=== PATIENT | female | born 1990 | race Caucasian/White ===

== ENCOUNTER 2019-07-08 19:14 | Emergency (ER) | payer OTHER ==
[~2019-07-08] VITALS: Ht 167.6 cm; Wt 112.1 kg
--- NOTE | 2019-07-08 19:43 | ED.ADGEN ---
Past History Past Medical History: No Pertinent History Past Surgical History: Alcohol Use: Occasionally Drug Use: None Adult General Chief Complaint Chief Complaint ".. We just got back from [facility]... It was about a [address]... and I noticed my Rt. calf was swollen and red... I am worried I might have a DVT...." HPI HPI Patient is a 28 year old female who presents with Rt. lower leg pain after [address] from [place], [place]. Patient does have area of swelling on right calf which is tender and erythemic. There is no striations. There is no obvious cording. Does have findings of varicose veins. There is a small lesion on lower right calf as if she had a recent injury. There are no findings of interdigital fungus infection. There is no adenopathy in right groin. Does have some nonspecific bruising of both legs. No hx of injury to feet while walking on the [facility] bare foot. Patient denies history of immunos uppression. Patient denies any specific ill contacts. Patient normally follows with at Urgent cares. Patient does smoke. Review of Systems Review of Systems Constitutional: Denies fever or chills [] Eyes: Denies change in visual acuity, redness, or eye pain [] HENT: Denies nasal congestion or sore throat [] Respiratory: Denies cough or shortness of breath [] Cardiovascular: No additional information not addressed in HPI [] GI: Denies abdominal pain, nausea, vomiting, bloody stools or diarrhea [] : Denies dysuria or hematuria [] Musculoskeletal: Denies back pain or joint pain []complains of right calf pain Integument: Denies rash or skin lesions [] Neurologic: Denies headache, focal weakness or sensory changes [] Endocrine: Denies polyuria or polydipsia [] All other systems were reviewed and found to be within normal limits, except as documented in this note. Family History Family History Noncontributory Current Medications Current Medications Current Medications Medications (Trade) Dose Ordered Sig/Vicki Start Time Stop Time Status Last Admin Dose Admin Hydrocodone Bitartrate/ Ibuprofen (Vicoprofen 7.5-200) 2 tab 1X ONCE 07/08/19 21:45 07/08/19 21:54 DC 07/08/19 21:49 2 TAB Trimethoprim/ Sulfamethoxazole (Bactrim Ds) 1 tab 1X ONCE 07/08/19 23:30 07/09/19 00:16 DC 07/08/19 23:35 1 TAB Allergies Allergies Allergies Coded Allergies Type Severity Reaction Last Updated Verified No Known Drug Allergies 11/04/15 No Physical Exam Physical Exam Constitutional: Moderate acute distress, non-toxic appearance. [] HENT: Normocephalic, atraumatic, bilateral external ears normal, oropharynx moist, no oral exudates, nose normal. [] Eyes: PERRLA, EOMI, conjunctiva normal, no discharge. [] Neck: Normal range of motion, no tenderness, supple, no stridor. [] Cardiovascular:Heart rate regular rhythm, no murmur [] Lungs & Thorax: Bilateral breath sounds clear to auscultation [] Abdomen: Bowel sounds normal, soft, no tenderness, no masses, no pulsatile masses. [] Old surgery scar Skin: Warm, dry, no erythema, no rash. [] Back: No tenderness, no CVA tenderness. [] Extremities: Right calf tenderness, no cyanosis, no clubbing, ROM intact, right calf edema. [] Right calf inflammation. Both legs have some venous stasis and v aricose veins. Distal capillary refill is equal in both feet and less than 2 seconds.. Pedal pulses are equal in both feet. Neurologic: Alert and oriented X 3, normal motor function, normal sensory function, no focal deficits noted. [] Psychologic: Affect anxious, judgement normal, mood normal. [] Current Patient Data Vital Signs Vital Signs Date Time Temp Pulse Resp B/P (MAP) Pulse Ox O2 Delivery O2 Flow Rate FiO2 07/09/19 04:24 97.9 86 20 131/90 (104) 96 Room Air Lab Results Laboratory Tests Test 07/08/19 20:21 07/08/19 20:36 07/08/19 20:49 Urine Collection Type Void Urine Color Straw Urine Clarity Clear Urine pH 7.0 Urine Specific Nelson 1.010 Urine Protein Neg (NEG-TRACE) Urine Glucose (UA) Neg mg/dL (NEG) Urine Ketones (Stick) Neg mg/dL (NEG) Urine Blood Neg (NEG) Urine Nitrite Neg (NEG) Urine Bilirubin Neg (NEG) Urine Urobilinogen Dipstick 0.2 mg/dL (0.2 mg/dL) Urine Leukocyte Esterase Neg (NEG) Urine RBC 0 /HPF (0-2) Urine WBC 0 /HPF (0-4) Urine Squamous Epithelial Cells Few /LPF Urine Bacteria 0 /HPF (0-FEW) Urine Opiates Screen Neg (NEG) Urine Methadone Screen Neg (NEG) Urine Barbiturates Neg (NEG) Urine Phencyclidine Screen Neg (NEG) Urine Amphetamine/Methamphetamine Pos (NEG) Urine Benzodiazepines Screen Neg (NEG) Urine Cocaine Screen Neg (NEG) Urine Cannabinoids Screen Neg (NEG) Urine Ethyl Alcohol Pos (NEG) POC Urine HCG, Qualitative hcg negative (Negative) White Blood Count 7.2 x10^3/uL (4.0-11.0) Red Blood Count 4.07 x10^6/uL (3.50-5.40) Hemoglobin 13.1 g/dL (12.0-15.5) Hematocrit 39.0 % (36.0-47.0) Mean Corpuscular Volume 96 fL (79-100) Mean Corpuscular Hemoglobin 32 pg (25-35) Mean Corpuscular Hemoglobin Concent 34 g/dL (31-37) Red Cell Distribution Width 12.7 % (11.5-14.5) Platelet Count 218 x10^3/uL (140-400) Neutrophils (%) (Auto) 58 % (31-73) Lymphocytes (%) (Auto) 32 % (24-48) Monocytes (%) (Auto) 7 % (0-9) Eosinophils (%) (Auto) 2 % (0-3) Basophils (%) (Auto) 1 % (0-3) Neutrophils # (Auto) 4.2 x10^3uL (1.8-7.7) Lymphocytes # (Auto) 2.3 x10^3/uL (1.0-4.8) Monocytes # (Auto) 0.5 x10^3/uL (0.0-1.1) Eosinophils # (Auto) 0.1 x10^3/uL (0.0-0.7) Basophils # (Auto) 0.1 x10^3/uL (0.0-0.2) Prothrombin Time 9.6 SEC (9.4-11.4) Prothrombin Time INR 0.9 (0.9-1.1) Activated Partial Thromboplast Time 25 SEC (23-33) D-Dimer (Cally) < 0.19 mg/L (0.00-0.50) Sodium Level 142 mmol/L (136-145) Potassium Level 4.0 mmol/L (3.5-5.1) Chloride Level 105 mmol/L (98-107) Carbon Dioxide Level 27 mmol/L (21-32) Anion Gap 10 (6-14) Blood Urea Nitrogen 6 mg/dL (7-20) L Creatinine 0.7 mg/dL (0.6-1.0) Estimated GFR (Cockcroft-Gault) 98.3 Glucose Level 97 mg/dL (70-99) Calcium Level 8.8 mg/dL (8.5-10.1) EKG EKG [] Radiology/Procedures Radiology/Procedures [][address] [id number] IMAGING REPORT Signed PATIENT: CALEB SERNA ACCOUNT: [id number] : 1990 LOCATION: ER AGE: 28 SEX: F EXAM STATUS: REG ER ORD. PHYSICIAN: SERGIO CROCKER MD REASON: swollen painful rtlower leg PROCEDURE: VENOUS LOWER EXTREMITY RIGHT Exam: Right lower extremity venous duplex study INDICATION: Leg swelling TECHNIQUE: Using a combination of real-time ultrasound imaging and color-flow and pulse Doppler imaging techniques along with graded compression and augmentation, duplex evaluation of the deep venous systems of rightlower extremity was performed. Multiple images were obtained. Findings: There is no sonographic evidence for deep venous thrombosis involving the visualized deep venous structures of the right lower extremity. IMPRESSION: No acute DVT in the right lower extremities. Electronically signed by: Genaro Painter MD (07/08/2019 10:36 PM) [facility] DICTATED AND SIGNED BY: GENARO PAINTER MD DATE: 07/08/192235 CC: SERGIO CROCKER MD; PCP,NO ~ Course & Med Decision Making Course & Med Decision Making Pertinent Labs and Imaging studies reviewed. (See chart for details) Patient a use moist compresses salt water or Epsom salts 4 times a day. Patient to take Bactrim DS twice a day to cover for possible early cellulitis. Take a daily aspirin. Patient return if any concerns. Patient follow-up with primary care. Patient encouraged not to smoke or use illicit drugs. Patient return if any concerns. Elevate right leg when possible. [] Final Impression Final Impression 1. Superficial thrombophlebitis 2. Cellulitis- possible 3. No DVT by ultrasound or d-dimer[] 4. Tobacco use, urine drug screen positive for amphetamine Dragon Disclaimer Dragon Disclaimer This electronic medical record was generated, in whole or in part, using a voice recognition dictation system. Dragon Disclaimer This chart was dictated in whole or in part using Voice Recognition software in a busy, high-work load, and often noisy Emergency Department environment. It may contain unintended and wholly unrecognized errors or omissions. Dragon Disclaimer This chart was dictated in whole or in part using Voice Recognition software in a busy, high-work load, and often noisy Emergency Department environment. It may contain unintended and wholly unrecognized errors or omissions. SERGIO CROCKER MD Jul 08, 2019 19:43
[2019-07-08 20:44] LABS: BARBITURATES NEG (NEG); BENZODIAZEPINES NEG (NEG); CANNABINOIDS NEG (NEG); COCAINE NEG (NEG); METHADONE NEG (NEG); OPIATES NEG (NEG); PHENCYCLIDINE NEG (NEG)
[2019-07-08 20:45] LABS: AMPHETAMINE/METHAMPHETAMINE POS (NEG)
[2019-07-08 20:50] LABS: BACTERIA,URINE 0 /HPF (0-FEW); BILIRUBIN,URINE NEG (NEG); CLARITY,URINE CLEAR; COLOR,URINE STRAW; GLUCOSE,URINE NEG (NEG); NITRITE,URINE NEG (NEG); RBC,URINE 0 /HPF (0-2); SQUAMOUS EPITHELIAL CELL,UR FEW /LPF; UROBILINOGEN,URINE 0.2 mg/dL (0.2 mg/dL); WBC,URINE 0 /HPF (0-4)
[2019-07-08 21:24] LABS: BASO # 0.1 x10^3/uL (0.0-0.2); BASO % 1 % (0-3); EOS # 0.1 x10^3/uL (0.0-0.7); EOS % 2 % (0-3); HEMOGLOBIN 13.1 g/dL (12.0-15.5); LYMPH # 2.3 x10^3/uL (1.0-4.8); LYMPH % 32 % (24-48); MEAN CORPUSCULAR HEMOGLOBIN 32 pg (25-35); MEAN CORPUSCULAR HGB CONC 34 g/dL (31-37); MEAN CORPUSCULAR VOLUME 96 fL (79-100); MONO # 0.5 x10^3/uL (0.0-1.1); MONO % 7 % (0-9); NEUT # 4.2 x10^3uL (1.8-7.7); NEUT % 58 % (31-73); PLATELET COUNT 218 x10^3/uL (140-400); RED BLOOD COUNT 4.07 x10^6/uL (3.50-5.40); RED CELL DISTRIBUTION WIDTH 12.7 % (11.5-14.5); WHITE BLOOD COUNT 7.2 x10^3/uL (4.0-11.0)
[2019-07-08 21:26] LABS: CALCIUM 8.8 mg/dL (8.5-10.1); CREATININE 0.7 mg/dL (0.6-1.0); GFR 98.3
[2019-07-08] MEDS ORDERED: HYDROcodon/IBUPROFEN 7.5/200MG 1 TAB TABLET PO ONE (21:45)
--- NOTE | 2019-07-08 22:40 | RAD ---
Exam: Right lower extremity venous duplex study INDICATION: Leg swelling TECHNIQUE: Using a combination of real-time ultrasound imaging and color-flow and pulse Doppler imaging techniques along with graded compression and augmentation, duplex evaluation of the deep venous systems of rightlower extremity was performed. Multiple images were obtained. Findings: There is no sonographic evidence for deep venous thrombosis involving the visualized deep venous structures of the right lower extremity. IMPRESSION: No acute DVT in the right lower extremities. Electronically signed by: Genaro Simeon MD (07/08/2019 10:36 PM) [facility]
[2019-07-08] MEDS ORDERED: HYDR-1179 PO (23:29)
[2019-07-08] MEDS ORDERED: SULF1TAB24 PO (23:29)
[2019-07-08] MEDS ORDERED: SMZ/TMP 800/160MG TABLET. PO ONE (23:30)
[2019-07-09 04:24] VITALS: BP 131/90
== END 2019-07-08 23:45 | disposition home or self-care (01) ==
LOC: ER 19:14
DX: I80.01 Phlebitis and thrombophlebitis of superficial vessels of right lower extremity (principal); Z72.0 Tobacco use; F15.90 Other stimulant use, unspecified, uncomplicated
CPT/HCPCS: 36415; 80048; 80307; 81001; 81025; 85025; 85379; 85610; 85730; 93971; 99285

== ENCOUNTER 2020-07-24 06:48 | Emergency (ER) | payer OTHER ==
[~2020-07-24] VITALS: Ht 167.6 cm; Wt 109.0 kg
[~2020-07-24 06:48] MED LIST: HYDR-1179 PO; SULF1TAB24 PO
[2020-07-24 06:58] VITALS: BP 132/97
[2020-07-24] MEDS ORDERED: PRED-220 PO (07:32)
[2020-07-24] MEDS ORDERED: HYDR-3165 PO (07:32)
--- NOTE | 2020-07-24 07:32 | PHYS DOC ---
Past History Past Medical History: No Pertinent History, Anxiety, Bipolar, Other Past Surgical History: , Other Alcohol Use: Occasionally Drug Use: None General Adult EDM: Chief Complaint: HAND PROBLEM HPI: HPI: 29-year-old female presents with right wrist and elbow pain. The patient is right-handed. 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 Yesterday she started to have pain in her right wrist which then spread to her elbow. She just assumed she was a little bit worn out. The pain worsened through the evening and overnight last night, she had significantly more pain. It woke her in her sleep. It is most painful to fully extend the elbow or to extend the wrist. She denies any trauma or falls. She was painting all day yesterday. She has not had this before. She has some mild tingling in her second and third digit. She denies fever or chills. Review of Systems: Review of Systems: Constitutional: Denies fever or chills Eyes: Denies change in visual acuity HENT: Denies nasal congestion or sore throat Respiratory: Denies cough or shortness of breath Cardiovascular: Denies chest pain or edema GI: Denies abdominal pain, nausea, vomiting, bloody stools or diarrhea : Denies dysuria Musculoskeletal: Right wrist and elbow pain Integument: Denies rash Neurologic: Denies headache, focal weakness or sensory changes Endocrine: Denies polyuria or polydipsia Lymphatic: Denies swollen glands Psychiatric: Denies depression or anxiety Heart Score: Risk Factors: Risk Factors: DM, Current or recent (<one month) smoker, HTN, HLP, family history of CAD, obesity. Risk Scores: Score 0 - 3: 2.5% MACE over next 6 weeks - Discharge Home Score 4 - 6: 20.3% MACE over next 6 weeks - Admit for Clinical Observation Score 7 - 10: 72.7% MACE over next 6 weeks - Early Invasive Strategies Allergies: Allergies: Allergies Coded Allergies Type Severity Reaction Last Updated Verified No Known Drug Allergies 11/04/15 No Physical Exam: PE: Constitutional: Well developed, well nourished, no acute distress, non-toxic appearance. [] HENT: Normocephalic, atraumatic, bilateral external ears normal, oropharynx moist, no oral exudates, nose normal. [] Eyes: PERRLA, EOMI, conjunctiva normal, no discharge. [] Neck: Normal range of motion, no tenderness, supple, no stridor. [] Cardiovascular:Heart rate regular rhythm, no murmur [] Lungs & Thorax: Bilateral breath sounds clear to auscultation [] Abdomen: Bowel sounds normal, soft, no tenderness, no masses, no pulsatile masses. [] Skin: Warm, dry, no erythema, no rash. [] Back: No tenderness, no CVA tenderness. [] Extremities: Tenderness of the right posterior wrist and elbow. Swelling of the wrist joint compared to the left. No obvious deformity. [] Neurologic: Alert and oriented X 3, normal motor function, normal sensory function, no focal deficits noted. [] Psychologic: Affect normal, judgement normal, mood normal. [] Current Patient Data: Vital Signs: Vital Signs Date Time Temp Pulse Resp B/P (MAP) Pulse Ox O2 Delivery O2 Flow Rate FiO2 07/24/20 06:58 97.8 85 20 132/97 (109) 95 Room Air EKG: EKG: [] Radiology/Procedures: Radiology/Procedures: [] Course & Med Decision Making: Course & Med Decision Making Pertinent Labs and Imaging studies reviewed. (See chart for details) I believe the patient has an overuse injury and now has inflamed joints of the wrist and elbow. I will treat her with prednisone for 5 days. I will also give her a short course of Brandon for her discomfort for the next day or 2. She will rest her arm the best she can so that it can improve. She will follow-up with physical therapy if the symptoms return or if current treatment does not resolve her symptoms. She is stable for discharge at this time. [] Dragon Disclaimer: William Disclaimer: This electronic medical record was generated, in whole or in part, using a voice recognition dictation system. Departure Departure: Impression: Primary Impression: Acute carpal tunnel syndrome Qualified Codes: G56.01 - Carpal tunnel syndrome, right upper limb Additional Impression: Cubital tunnel syndrome on right Disposition: HOME/RESIDENCE PRIOR TO ADM Condition: STABLE Referrals: LAURA UMANZOR (PCP) Patient Instructions: Carpal Tunnel Syndrome-SportsMed Scripts Prednisone (PREDNISONE) 10 Mg Tablet 50 MG PO DAILY for wrist inflammation for 3 Days, #15 TAB Prov: JUVE CARR DO 07/24/20 Hydrocodone Bit/Acetaminophen (NORCO 5-325 TABLET) 1 Each Tablet 1 TAB PO PRN Q6HRS PRN for PAIN, #10 TAB 0 Refills Prov: JUVE CARR DO 07/24/20 Justification of Admission: Justification of Admission: Justification of Admission Dx: N/A JUVE CARR DO Jul 24, 2020 07:32
== END 2020-07-24 07:35 | disposition home or self-care (01) ==
LOC: ER 06:48
DX: G56.01 Carpal tunnel syndrome, right upper limb (principal); G56.21 Lesion of ulnar nerve, right upper limb
CPT/HCPCS: 99283

== ENCOUNTER 2021-10-21 16:37 | Emergency (ER) | payer OTHER ==
[~2021-10-21] VITALS: Ht 167.6 cm; Wt 109.3 kg
[~2021-10-21 16:37] MED LIST changes: +HYDR-3165 PO; +PRED-220 PO
[2021-10-21] MEDS ORDERED: LIDOCAINE 2%/EPI 1:100,000 20 ML VIAL. IJ ONE (17:00)
--- NOTE | 2021-10-21 17:06 | PHYS DOC ---
Past History Past Medical History: No Pertinent History, Anxiety, Bipolar, Other Additional Past Medical Histor: ADHD Past Surgical History: Additional Smoking Information: PACK/DAY Alcohol Use: Occasionally Drug Use: None General Adult EDM: Chief Complaint: LACERATION/AVULSION HPI: HPI: Patient is a 31 year old female who presents with laceration to the calf of the left lower extremity. Patient states she was doing some house work earlier this week, and has some tools out. This evening, she walked backwards into a bucket that had a scraping tool and it that has a blade on the end. Patient reports the blade cut through her jeans and into her leg. She did not immediately realize that she had a laceration. Patient states the blade is new and clean. Her tetanus was updated in the last 5 years. Patient denies paresthesias, uncontrollable bleeding, use of blood thinners. Review of Systems: Review of Systems: ROS negative except as mentioned in HPI. Allergies: Allergies: Allergies Coded Allergies Type Severity Reaction Last Updated Verified haloperidol Allergy Unknown 10/21/21 Yes Physical Exam: PE: Constitutional: Well developed, well nourished, no acute distress, non-toxic appearance. Cardiovascular: Heart rate regular rhythm, no murmur. Lungs & Thorax: Bilateral breath sounds clear to auscultation. Skin: 2 cm vertical laceration noted to the middle calf of the left lower extremity without active bleeding. Warm, dry, no erythema, no rash. Extremities: No tenderness, no cyanosis, no clubbing, ROM intact, no edema, neurovascular intact. Current Patient Data: Vital Signs: Vital Signs Date Time Temp Pulse Resp B/P (MAP) Pulse Ox O2 Delivery O2 Flow Rate FiO2 10/21/21 17:30 102 20 161/77 (105) 98 Room Air 10/21/21 16:45 98.1 102 20 165/97 (119) 99 Room Air Heart Score: C/O Chest Pain: No Course & Med Decision Making: Course & Med Decision Making Pertinent Labs and Imaging studies reviewed. (See chart for details) Laceration will be repaired here in the department. Patient instructed to have sutures removed in 7-10 days, either here, at an urgent care or at her primary care doctor's office. She understands and is agreeable to discharge plan. William Disclaimer: William Disclaimer: This electronic medical record was generated, in whole or in part, using a voice recognition dictation system. Laceration Repair Lac Repair Indication: Left lower extremity laceration Procedure: The patient was placed in the appropriate position and anesthesia around the laceration was 1% lidocaine with epinephrine. The area was then irrigated with 20 cc sterile saline and cleansed with Betadine solution. The laceration was closed with 3 simple interrupted sutures using 4-0 nylon. The wound area was then dressed with nonadhesive bandage. Total repaired wound length: 3 cm. Other Items: The patient tolerated the procedure very well. Complications: No complications. Departure Departure: Impression: Primary Impression: Laceration without foreign body, left lower leg, initial encounter Disposition: HOME / SELF CARE / HOMELESS Condition: STABLE Referrals: LAURA UMANZOR (PCP) Patient Instructions: Sutured Wound Care, [id number] SAUMYA ELIZONDO Oct 21, 2021 17:06
[2021-10-21] MEDS ORDERED: LIDOCAINE 1%/EPI 1:100,000 20 ML VIAL. IJ ONE (17:15)
[2021-10-21 17:30] VITALS: BP 161/77
== END 2021-10-21 17:32 | disposition home or self-care (01) ==
LOC: ER 16:37
DX: S81.812A Laceration without foreign body, left lower leg, initial encounter (principal); F17.200 Nicotine dependence, unspecified, uncomplicated; Z88.8 Allergy status to other drugs, medicaments and biological substances; W26.8XXA Contact with other sharp object(s), not elsewhere classified, initial encounter; Y93.89 Activity, other specified; Y92.89 Other specified places as the place of occurrence of the external cause; Y99.8 Other external cause status
CPT/HCPCS: 12002; 99282